=== PATIENT | male | born 1950 | race Caucasian/White ===

== ENCOUNTER 2022-01-24 10:16 | Outpatient (CLI) | payer MEDICARE, SELFPAY ==
--- NOTE | 2022-01-24 10:33 | ECG_ITS ---
Measurements Intervals [place] Rate: 69 P: 74 IA: 156 QRS: 69 QRSD: 89 T: 62 QT: 367 QTc: 395 Interpretive Statements SINUS RHYTHM BASELINE ARTIFACT- I, III NORMAL ECG NO PREVIOUS ECG AVAILABLE FOR COMPARISON Electronically Signed On 01-24-2022 14:32:29 CDT by Rafael Lee D.O.
[2022-01-24 11:13] LABS: Anion Gap 9 mmol/L (8-16); Blood Urea Nitrogen 15 mg/dL (9-20); Carbon Dioxide 26 mmol/L (22-30); Chloride 101 mmol/L (98-107); Estimated Glomerular Filt Rate > 60; Glucose 185 mg/dL (65-110); Potassium 4.7 mmol/L (3.4-5.0); Sodium 136 mmol/L (137-145)
== END 2022-01-24 10:17 | disposition home or self-care (01) ==
LOC: ANHSURGERY 10:25
PROVIDERS: Anesthesiology; PCP Internal Medicine; Visit Provider Surgery
DX: Z01.818 Encounter for other preprocedural examination (principal); K40.30 Unilateral inguinal hernia, with obstruction, without gangrene, not specified as recurrent; E11.9 Type 2 diabetes mellitus without complications
CPT/HCPCS: 36415; 80048; 86850; 86900; 86901; 93005

== ENCOUNTER 2022-01-29 00:19 | Day surgery (SDC) | payer MEDICARE, SELFPAY ==
[2022-01-23 15:40] VITALS: BMI 22.7
--- NOTE | 2022-01-23 15:52 | PC.NURSE ---
Report to the Outpatient Waiting Room, entrance under the green pavilion located off [facility], at time 6:00 on date 01/29/22. OR Time: 7:30. Time changes happen often and if your time is changed the preop area will call you the afternoon before. - You and your visitor will be asked to self-screen and do not enter if you have any COVID symptoms. - Only one visitor and NO children visitors are allowed at this time. - The patient visitor is requested to leave or wait in car when not with patient due to restrictions. - A mask is required within the hospital. Patients may have clear liquids (water, carbonated beverages, clear teas, apple juice) until 3 hours prior to surgery (4:30) with a maximum of 20 ounces. - No food from midnight until time of surgery Take the following medications with a SIP of water the morning of surgery: NONE Medications to discontinue per physician: VITAMIN Date to take last dose: 01/25/22 Please no make-up, nail setswana, hairspray, perfume, deodorant, or body powder the day of surgery. No jewelry (including any body piercings) or valuables the day of surgery, leave them at home. Please take a shower or bath the night before, or the morning of, surgery with an antibacterial soap (HIBICLENS). Wear comfortable, loose fitting clothing. - Jewelry must be removed prior to entering the operating room. Rings and piercings that are not removed may be cut off. - The hospital will not accept responsibility for valuables. - Please leave all valuables, including medications, at home the day of surgery. If you are going home after surgery, a licensed truck driver instructor must drive you home. - NO public transportation without another adult. - We recommend that an adult stay with you for 24 hours following discharge. - We also recommend that you do not drive, make important decision, drink alcoholic beverages, or take any drugs that were not prescribed by your health care provider for at least 24 hours after your discharge time. Follow any additional instructions given to you from your surgeon. If you or anyone in your household have experienced Covid symptoms in the past week, please notify your surgeon or the nurse liaison at the phone number below for possible testing. Telephone instructions given to PT - PIEDAD KINNEY and asked if any additional questions and then verbalized understanding. Patient advised to call surgeon office or pre surgery nurse liaison [phone] if any additional questions.
[2022-01-29] VITALS (9 sets, daily range): BP systolic 130–176; BP diastolic 52–81; PULSE 61–105; RESP 10–20; TEMP 36.6–37; O2SAT 99–100
[2022-01-29] MEDS: ACETAMINOPHEN 500 MG TABLET 1000 MG PO (06:40)
[2022-01-29] MEDS: LACTATED RINGERS 1,000 ML 30 ML IV CONT ×2 (06:45→09:49)
[2022-01-29] MEDS: KETOROLAC 15 MG/ML VIAL (*BKC) IV PUSH (06:46)
[2022-01-29 06:55] LABS: Glucose Point of Care 194 mg/dl (65-105)
--- NOTE | 2022-01-29 07:02 | WPDANESEPPF ---
Anes - Initial Pre Proc Eval Procedure: Operation Date: 01/29/22 07:30 Proposed Procedures p Robotic Assisted Incarcerated Left Inguinal Hernia Repair with Mesh - Tatiana Coombs MD Date/Time: 01/29/22 07:02 Surgeon: Tatiana Coombs MD Pre Op Diagnosis: Incarcerated Lt Ing Hernia Patient Data Age: 71 Gender: M Height: 1.7 m Weight: 65.77 kg Allergies Allergy/AdvReac Type Severity Reaction Status Date / Time No Known Allergies Allergy Verified 01/29/22 06:07 Home Medications Medication Instructions Recorded Confirmed Type aspirin 81 mg tablet,delayed 81 mg PO DAILY 12/19/21 01/29/22 History release (Adult Aspirin Regimen) cholecalciferol (vitamin D3) 50 50 mcg PO DAILY 12/19/21 01/29/22 History mcg (2,000 unit) capsule dulaglutide 0.75 mg/0.5 mL 0.75 mg subcut WEEKLY 12/19/21 01/29/22 History subcutaneous pen injector (Trulicity) insulin degludec 100 unit/mL (3 5 unit subcut DAILY 12/19/21 01/29/22 History mL) subcutaneous pen (Tresiba FlexTouch U-100 insulin) metformin 500 mg tablet 500 mg PO DAILY 12/19/21 01/29/22 History rosuvastatin 10 mg tablet 10 mg PO DAILY 12/19/21 01/29/22 History Laboratory Tests 01/29/22 06:50 POC Capillary Glucose 194 mg/dl H mg/dl (65-105) Patient hx anesthesia problems: none Family hx anesthesia problems: none Results Review: All pre-operative results and documents have been reviewed as part of the pre-operative evaluation. [facility] Past Medical History Medical History Bone cancer Diabetes High cholesterol Melanoma Pancreatitis Pseudocyst of pancreas Skin cancer Surgical History Surgical History H/O skin graft Hx of cholecystectomy Skin cancer (melanoma) excision Family History Family History Mother Cerebrovascular accident Hypertension Diabetes mellitus Father No problems noted. Social History Social History Social History: daily caffeine use- 2 cups of coffee per day Smoking packs per day: 1.5 Smoking cigarettes per day: 30.0 Years smoked: 10 Smoking pack-years: 15.00 Smoking status: Former smoker Tobacco type: cigarettes Smoking end date: 05/13/01 Alcohol intake: never Alcohol use details: QUIT WHEN DIAGNOSED DIABETIC Substance use: never Substance use type: does not use Living arrangements: alone Additional living arrangements comments: Patient is Gender identity (if verbalized by the patient): Male Spiritual care concerns: No Anes - Eval Final PreProcedure Day of Procedure 01/29/22 07:02 Patient weight: normal Heart: regular rate and rhythm Lungs: clear to auscultation Airway: Mallampati scale class II and special considerations poor dentition Neurological: alert and oriented Last oral intake: >/= 8 hours ASA classification: III Anesthetic plan: proceed Anesthesia type and monitoring: general ETT and standard monitoring Results Review: All pre-operative results and documents have been reviewed as part of the pre-operative evaluation. Informed Consent: The patient's anesthetic plan and its attendant risks and benefits were discussed with the patient/family/POA. Questions were solicited and answers provided to the satisfaction of the patient/family/POA.
--- NOTE | 2022-01-29 07:21 | PM.IMHP ---
H&P: HPI History of Present Illness Date/Time: 01/29/22 07:21 Chief Complaint: left inguinal hernia Narrative: Hawk is a 71 y/o male who presents to the office at the request of Izzy Carmichael MD for evaluation of a left groin bulge. Patient states he first noticed this bulge about 4 years ago. He states the bulge has gradually increased in size. He does experience occasional discomfort with lifting. Patient denies any problems with eating or having BM's. He states the bulge is not reducible.? Review of Systems Review of Systems: All systems reviewed & are unremarkable except as noted in HPI and below PMFSH Past Medical History Medical History Bone cancer Diabetes High cholesterol Melanoma Pancreatitis Pseudocyst of pancreas Skin cancer Surgical History Surgical History H/O skin graft Hx of cholecystectomy Skin cancer (melanoma) excision Family History Family History Mother Cerebrovascular accident Hypertension Diabetes mellitus Father No problems noted. Social History Social History Social History: daily caffeine use- 2 cups of coffee per day Smoking packs per day: 1.5 Smoking cigarettes per day: 30.0 Years smoked: 10 Smoking pack-years: 15.00 Smoking status: Former smoker Tobacco type: cigarettes Smoking end date: 05/13/01 Alcohol intake: never Alcohol use details: QUIT WHEN DIAGNOSED DIABETIC Substance use: never Substance use type: does not use Living arrangements: alone Additional living arrangements comments: Patient is Gender identity (if verbalized by the patient): Male Spiritual care concerns: No Meds Home Medications and Allergies Home Medications Medication Instructions Recorded Confirmed Type aspirin 81 mg tablet,delayed 81 mg PO DAILY 12/19/21 01/29/22 History release (Adult Aspirin Regimen) cholecalciferol (vitamin D3) 50 50 mcg PO DAILY 12/19/21 01/29/22 History mcg (2,000 unit) capsule dulaglutide 0.75 mg/0.5 mL 0.75 mg subcut WEEKLY 12/19/21 01/29/22 History subcutaneous pen injector (Trulicity) insulin degludec 100 unit/mL (3 5 unit subcut DAILY 12/19/21 01/29/22 History mL) subcutaneous pen (Tresiba FlexTouch U-100 insulin) metformin 500 mg tablet 500 mg PO DAILY 12/19/21 01/29/22 History rosuvastatin 10 mg tablet 10 mg PO DAILY 12/19/21 01/29/22 History Allergies Allergy/AdvReac Type Severity Reaction Status Date / Time No Known Allergies Allergy Verified 01/29/22 06:07 Exam Const: General: cooperative, comfortable and no acute distress Nutritional Appearance: average body habitus Orientation/consciousness: patient oriented x3 Resp: Auscultation: clear to auscultation bilaterally Cardio: Rate: regular rate Rhythm: regular rhythm GI: Inspection: normal to inspection and non-distended GI Palp: Yes abdominal tenderness, Yes Soft to palpation, No Firmness to palpation present (GI), Yes Tenderness to palpation present (GI), No Guarding due to palpation present (GI), No Rigid due to palpation and Yes Hernia present Other: large LIH - non reducible Skin: General skin exam: normal color and no rashes or lesions noted Assessment and Plan Assessment and plan (1) Incarcerated left inguinal hernia: Code(s): K40.30 - Unilateral inguinal hernia, with obstruction, without gangrene, not specified as recurrent Status: Acute Assessment and Plan: will setup for robotic assisted repair c mesh (2) Type 2 diabetes mellitus: Qualifiers: Diabetes mellitus machine long goods helper insulin use: with machine long goods helper use Diabetes mellitus complication status: without complication Qualified Code(s): E11.9 - Type 2 diabetes mellitus without complications; Z79.4 - Long
--- NOTE | 2022-01-29 07:24 | WPDHPUPDATE1 ---
History and Physical Update Update Date/Time: 01/29/22 07:24 History and Physical has been reviewed, including an updated exam of the patient. There are NO changes in the patient's condition. Risks, benefits, and alternatives have been discussed and questions answered. Patient agrees to proceed with procedure.
[2022-01-29] MEDS: ceFAZolin 2 GM/D5W 50 ML 2 GM/50 ML BAG IVPB (07:27)
[2022-01-29] MEDS: BUPIVACAINE/EPINEPHRINE 0.25% 50 ML VIAL 30 ML INFILTRATE (08:19)
--- NOTE | 2022-01-29 08:46 | P.OP_ITS ---
Procedure Note - Detailed Date of Procedure 01/29/22 Pre-op Diagnosis Incarcerated left inguinal hernia Post-op Diagnosis Same Procedure Performed robotic assisted left inguinal hernia repair with mesh Surgeon Tatiana Coombs MD Anesthesia General Indications 71 y/o M c incarcerated LIH and worsening groin pain over last few months Findings direct left inguinal hernia with incarcerated sigmoid colon Description of Procedure Patient was brought into the operating room and placed in the supine position. After adequate induction of general anesthesia, the patient was prepped and draped in normal sterile fashion. A time-out was then done to verify the patient's identity, as well as the procedure being performed. I began by making a 8 mm incision in the supraumbilical region, a Veress needle was then placed into the peritoneal cavity. CO2 gas was then insufflated and after adequate pneumoperitoneum was achieved, the Veress needle was removed. I then placed an 8 mm trocar through this incision. I then placed the endoscope through this trocar site and under direct visualization placed 2 further 8 mm ports in the right and left mid abdomen. The [employer] robot was then docked to the 3 trocar sites. I then scrubbed out and went to the robotic console. Upon examining the pelvis, it was noted that the patient had a large incarcerated left inguinal hernia. The right side was examined and no hernia defect was noted. I then gently reduced the contents of the hernia, noting a loop of sigmoid colon in the hernia. Once reduced, I examined the contents of the hernia, which were noted to be viable and non-inflamed. I began by making a preperitoneal flap approximately 6 cm superior to the defect. This flap was carried medially past the umbilical ligaments and laterally to the transversalis. It then began dissection of my medial compartment taking this down to the pubic tubercle. A large direct hernia defect was noted and this was dissected and reduced. I then began the lateral dissection taking this down to the transversalis fascia. Once these compartments were achieved, I began dissection around the cord structures. No indirect defect was noted, although I did reduce a large lipoma of the cord. Once this was adequately done, I went ahead and placed a large piece of 3D Max mesh into the abdominal cavity. The mesh was carefully positioned, centering the center of the mesh over the direct defect. Once this was done, was very satisfied with our repair. Using 3-0 Vicryl sutures, I tacked the mesh medially to Tyler's ligament. Two lateral sutures were placed from the mesh to the transversalis fascia. I then closed the peritoneal flap with a running 2.0 V Lock suture. The abdomen was then desufflated, and all ports were removed. All incisions were then closed with the 4.0 monocryl suture. Dermabond was placed on each wound. The patient tolerated the procedure well, was extubated in the operating room postoperatively, and will now be transferred to the recovery room in stable condition. Implants large 3DMax mesh Estimated Blood Loss 10 Drains No Packing No Pathology None sent Complications No immediate complications Condition Stable Disposition PACU [facility] Billing Surgery - Charge Forward: Surgery Billing
[2022-01-29 09:01] LABS: Glucose Point of Care 194 mg/dl (65-105)
== END 2022-01-29 11:04 | disposition home or self-care (01) ==
PROVIDERS: PCP Internal Medicine; Visit Provider Surgery
PROC: 8E0Y4CZ Robotic Assisted Procedure of Lower Extremity, Percutaneous Endoscopic Approach (ICD-10-PCS; CPT 49650; principal; 2022-01-29 07:30)
DX: K40.30 Unilateral inguinal hernia, with obstruction, without gangrene, not specified as recurrent (principal); E11.9 Type 2 diabetes mellitus without complications; E78.00 Pure hypercholesterolemia, unspecified; Z87.891 Personal history of nicotine dependence; Z79.4 Long term (current) use of insulin; Z79.84 Long term (current) use of oral hypoglycemic drugs; Z79.82 Long term (current) use of aspirin
CPT/HCPCS: 49650; S2900; 36415; 80048; 82948; 86850; 86900; 86901; 93005; A9270; C1781; J0690; J1100; J1170; J1885; J2405; J2704; J2710; J3010; J7120